=== PATIENT | female | born 1950 | race Caucasian/White ===

== ENCOUNTER → 2023-10-10 | Outpatient (CLI) | payer MEDICARE ==
--- NOTE | 2023-10-12 09:04 | MM ---
Reason for Exam: Screening (asymptomatic). Patient History: Menarche at age 11. First Full-Term at age 20. Postmenopausal. Patient has history of breast feeding. Maternal grandmother had breast cancer at or over age 50. Risk Values: Trini 5 year model risk: 1.4%. NCI Lifetime model risk: 3.8%. Prior Study Comparison: No prior studies available for comparison. Tissue Density: The breast tissue is heterogeneously dense. This may lower the sensitivity of mammography. Findings: Analyzed By CAD. There is no suspicious group of microcalcifications or new suspicious mass in either breast. Overall Assessment: Benign, BI-RAD 2 Management: Screening Mammogram of both breasts in 1 year. . Patient should continue monthly self-breast exams. A clinical breast exam by your physician is recommended on an annual basis. This exam should not preclude additional follow-up of suspicious palpable abnormalities. Note on Trini scores and lifetime risk: 1. A Trini score greater than 3% is considered moderate risk. If this is the case, consider specialist referral to assess eligibility for a risk reducing agent. 2. If overall lifetime risk for the development of breast cancer is 20% or higher, the patient may qualify for future screening with alternating mammogram and breast MRI. Electronically signed and approved by: Jacinto Bryant M.D. Radiologis
== END | disposition home or self-care (01) ==
LOC: RADMAMWWP 07:19
PROVIDERS: ATTEND Family Medicine
DX: Z12.31 Encounter for screening mammogram for malignant neoplasm of breast (principal); Z78.0 Asymptomatic menopausal state; Z80.3 Family history of malignant neoplasm of breast
CPT/HCPCS: 77063; 77067

== ENCOUNTER → 2024-08-01 | Outpatient (CLI) | payer MEDICARE ==
[2024-08-01 11:48] LABS: Partial Thromboplastin Time 23.7 sec (22.0-30.0); Prothrombin Time 10.7 sec (10.0-12.5)
[2024-08-01 15:15] LABS: HCT 42.1 % (37.2-46.3); HGB 13.4 g/dL (12.0-15.0); MCH 31.3 pg (27.0-32.0); MCHC 31.8 g/dL (32.0-37.0); MCV 98.4 FL (80.0-97.0); Mean Platelet Volume 10.6 FL (9.5-12.2); NRBC Per 100 WBC 0 X 10*3/uL (0.00-0.01); Platelet Count 357 X 10*3/uL (140-440); RBC 4.28 X 10*6/uL (4.10-5.20); RDW 13.5 % (11.5-14.5); WBC 7.14 X 10*3/uL (4.50-10.00)
[2024-08-01 15:20] LABS: ALT 16 U/L (8-44); AST 15 U/L (13-35); Albumin/Globulin Ratio 1.54 Ratio (1.60-3.17); Alkaline Phosphatase 76 U/L (41-126); BUN/Creat Ratio 16.17 Ratio (12.00-20.00); Blood Urea Nitrogen 9.7 mg/dL (9.0-27.0); Calcium 9.7 mg/dL (8.7-10.3); Carbon Dioxide 23.5 mmol/L (21.6-31.8); Chloride 105 mmol/L (96-109); Globulin 2.6 g/dL (1.6-3.3); Glucose 106 mg/dL (70-110); Potassium 4.4 mmol/L (3.5-5.5); Sodium 141 mmol/L (135-145); Total Bilirubin 0.5 mg/dL (0.3-1.2); Total Protein 6.6 g/dL (6.2-8.2)
== END | disposition home or self-care (01) ==
LOC: LABWHC1 10:32
PROVIDERS: ATTEND Orthopaedic Surgery
DX: Z01.818 Encounter for other preprocedural examination
CPT/HCPCS: 36415; 80053; 85027; 85610; 85730; 87070; 93005

== ENCOUNTER 2024-08-19 11:19 | Day surgery (SDC) | payer MEDICARE ==
[~2024-08-19 11:19] MED LIST: LIDOCAINE 1% (10MG/ML) FOR IV START INTRADERMA PRN; TRANEXAMIC 1,000 MG/100ML-NACL 1,000 MG in SALINE 1 100ML.BAG IVPB PRN; fentaNYL (PF) 50 MCG/ML 2 ML AMP IVP PRN
[2024-08-19] MEDS: LACTATED RINGERS 1,000 ML IV SCH (12:13)
[2024-08-19] MEDS: ACETAMINOPHEN TAB 500 MG TAB PO PRN (12:14)
[2024-08-19] MEDS: GABAPENTIN 300 MG CAP PO PRN (12:14)
[2024-08-19] MEDS: MELOXICAM 7.5 MG TAB PO PRN (12:14)
[2024-08-19] MEDS: ONDANSETRON 4 MG/2 ML VIAL IVP ONE (12:16)
[2024-08-19] MEDS: DEXAMETHASONE SOD PHOSPHATE 4 MG/ML 1 ML VIAL IV ONE (12:16)
[2024-08-19] MEDS: LACTATED RINGERS 1,000 ML IV ONE ×2 (12:40→14:30)
[2024-08-19] MEDS: MIDAZOLAM 2 MG/2 ML VIAL IV PRN (13:03)
[2024-08-19] MEDS ORDERED: HYDROmorphone 0.5 MG/0.5 ML SYRINGE IVP PRN ×3 (13:10)
[2024-08-19] MEDS ORDERED: NA PHOS,M-B/NA PHOS,DI-BA 133 ML ENEMA RECTAL PRN (13:10)
[2024-08-19] MEDS ORDERED: ONDANSETRON 4 MG/2 ML VIAL IVP PRN (13:10)
[2024-08-19] MEDS ORDERED: NALOXONE 0.4 MG/ML 1 ML VIAL IV PRN (13:10)
[2024-08-19] MEDS ORDERED: bisacodyL 10 MG SUPP RECTAL PRN (13:10)
[2024-08-19] MEDS ORDERED: MAGNESIUM HYDROXIDE 2,400 MG/30 ML CUP PO PRN (13:10)
[2024-08-19] MEDS ORDERED: HYDROcodone/APAP 7.5-325MG 1 EACH TAB PO PRN (13:12)
--- NOTE | 2024-08-19 13:25 | P.ANPRN ---
Procedure Note - Anesthesia - Nerve Block Performed Right Adductor Canal Infusion Time Out Performed: Yes Date of Procedure: 08/19/24 Procedure Start Time: 13:03 Procedure Stop Time: 13:11 Location of Patient: PreOp Indication: Acute Post-Operative Pain, Requested by Surgeon Sedation Type: Sedate with meaningful contact maintained Preparation: Sterile Prep, Sterile Dressing Position: Supine Catheter: Indwelling Needle Types: Pajunk Needle Gauge: 21 Ultrasound used to visualize needle placement: Yes Ultrasound used to observe medication spread: Yes Blood Aspirated: No Pain Paresthesia on Injection Noted: No Resistance on Injection: Normal Image Stored and Saved: Yes Events: Uneventful and Well Tolerated (ropi .5% 20cc plus dexamethasone 4mg)
--- NOTE | 2024-08-19 13:26 | P.ANPRN ---
Procedure Note - Anesthesia - Nerve Block Performed Right [place] Single Time Out Performed: Yes Date of Procedure: 08/19/24 Procedure Start Time: 13:12 Procedure Stop Time: 13:15 Location of Patient: PreOp Indication: Acute Post-Operative Pain, Requested by Surgeon Sedation Type: Sedate with meaningful contact maintained Preparation: Sterile Prep Position: Supine Needle Types: Pajunk Needle Gauge: 21 Ultrasound used to visualize needle placement: Yes Ultrasound used to observe medication spread: Yes Blood Aspirated: No Pain Paresthesia on Injection Noted: No Resistance on Injection: Normal Image Stored and Saved: Yes Events: Uneventful and Well Tolerated (ropi .5% 20cc plus dexmethasone 4mg)
[2024-08-19] MEDS ORDERED: GLYCOPYRROLATE 0.2 MG/ML 2 ML VIAL ONE (13:41)
[2024-08-19] MEDS ORDERED: ROPIVACAINE 5 MG/ML 30 ML VIAL ONE (13:41)
[2024-08-19] MEDS ORDERED: KETAMINE HCL IN 0.9 % NACL 50 MG/5 ML SYRINGE ONE (13:41)
[2024-08-19] MEDS ORDERED: PROPOFOL 10 MG/ML 20 ML VIAL IV ONE (13:41)
[2024-08-19] MEDS ORDERED: DEXAMETHASONE SOD PHOSPHATE 4 MG/ML 1 ML VIAL ONE (13:41)
[2024-08-19] MEDS ORDERED: MIDAZOLAM 2 MG/2 ML VIAL ONE (13:41)
[2024-08-19] MEDS ORDERED: TRANEXAMIC 1,000 MG/100ML-NACL PREMIX BAG ONE (13:41)
[2024-08-19] MEDS: ceFAZolin 3 GM in SODIUM CHLORIDE 0.9% 100 ML IVPB PRN (13:46)
[2024-08-19] MEDS: ceFAZolin 1,000 MG in SODIUM CHLORIDE 0.9% 1,000 ML IRRIGATION ONE (13:46)
--- NOTE | 2024-08-19 15:15 | P.OP ---
Date of Procedure: 08/19/24 Preoperative Diagnosis: Severe osteoarthritis, right knee Postoperative Diagnosis: Severe osteoarthritis, right knee Procedure(s) Performed: Right total knee arthroplasty Implants: [employer] Nephew Journey II CR Oxinium cruciate retaining femoral component size 5, right [employer] Journey nonporous tibial baseplate size 3, right [employer] Journey II, XLPE Deep Dished articular insert, size 13 mm, Size 3-4, right [employer] Journey [place] II resurfacing patellar component, oval, 32 mm All components were cemented using Palacos R bone cement The articulation is Oxinium on polyethylene Anesthesia: spinal Surgeon: Klaus Barrientos Lithograph Press Feeder #1: Elaina Talbert Estimated Blood Loss (ml): 40 Pathology: none sent Condition: stable Disposition: PACU Indications for Procedure: The patient's knee is end-stage, and conservative management has failed. The operation of knee replacement has been discussed at length in the office, as well as potential risks and complications. These are inclusive of, but not limited to: Infection, bleeding, scarring, discomfort, stiffness, blood vessel and nerve damage, need for further surgery, failure to relieve symptoms, persistence, recurrence, or worsening of problems, loosening, dislocation, wear, blood clot, pulmonary embolism, , gait dysfunction, stiffness, and other risks as discussed in the office. Patient elects to proceed and the consent form has been signed. Operative Findings: The operative findings are consistent with severe osteoarthritis of the right knee Description of Procedure: The patient was seen in the preoperative area, the consent was reviewed and the operative site was marked with a skin marker. The patient verified the procedure and the operative site. An adductor canal pain catheter and an iPACK block were placed by anesthesia in the preoperative area. The patient was then brought to the operating room and positioned on the operating room table in the supine position. Preoperative antibiotics and a gram of tranexamic acid were given intravenously. A spinal anesthetic was administered by the anesthesia department. Care was taken to make sure that all pressure points were adequately padded. A tourniquet was placed on the upper thigh and the lower extremity was prepped with ChloraPrep and draped in usual sterile fashion. A universal time-out was then performed which confirmed the patient's name, surgical site, ALLERGIES, and consent. The lower extremity was then exsanguinated and tourniquet was inflated to 250 mmHg. A standard anterior midline approach to the knee was performed. The skin and subcutaneous tissue were sharply dissected down to the patellar tendon. A medial parapatellar arthrotomy was then performed. The knee was then extended, the patellar was everted, and the knee was flexed. The infra-patellar fat pad was removed in order to enhance exposure. The anterior horns of both menisci were excised, and a release was performed to the posterior medial aspect of the knee. On gross visual inspection, there was complete loss of articular cartilage in the medial and patellofemoral joint spaces. There was also significant cartilage damage in the lateral compartment. There were multiple periarticular osteophytes globally about the knee which were then removed with a Ronguer. The femoral canal was then opened with the 9.5 mm intramedullary drill. The 8 mm intramedullary victor m was then inserted into the femoral canal with the distal femoral cutting guide set for 5 of valgus. The distal femoral cutting block was then pinned in place. The intramedullary victor m was then removed, and the distal femur was then cut. The cutting block was then removed and the cut was checked for symmetry. The resected bone was then measured to confirm the appropriate distal femoral resection. Next, the sizing guide was then placed and set for 3 external rotation based off of the epicondylar axis and [place]'s line. Pins were then placed and the drill holes, and the femur was sized with the sizing stylus. The pins were then removed, and the sizing guide was then removed. The spikes of the appropriate size femoral block was then placed into the predrilled holes, and malleted into place. Two 45 mm pins were then placed into the fixation holes on the cutting block. An matty wing was then used to ensure there would be no notching with the anterior cut. The anterior condyles were cut without notching. The anterior chord cut was then performed, followed by the posterior cut, posterior chamfer cut, and the anterio r chamfer cut. The collateral ligaments were protected during the entire process. The cutting block was then removed. Any remaining bone and osteophytes were removed from the femur with a Ronguer. Attention was then directed to the tibia. The remaining ACL was removed with a Ronguer, and the tibia was then gently subluxed forward with a large bent knee retractor. Any remaining menisci were excised. The posterior lateral corner was cauterized in order to coagulate the lateral geniculate artery. The extra medullary tibial cutting guide was then placed, set for the appropriate rotation, slope, and depth of resection. The proximal tibia cutting guide was then pinned in place. Proximal tibia was then cut and sized. A curved osteotome was then used to remove any posterior osteophytes from the distal femur. The femoral trial was placed. A narrow saw blade was then used to remove the anterior intracondylar femoral bone. The CR notch trial was then placed. The tibial trial was placed with the appropriate-sized insert. The knee was able to fully extend and flex to 130 and was stable throughout all range of motion. The knee was then extended and the patella was everted. Patella was then measured, and then using an osteotomy guide, the patella was cut at the appropriate level. The patellar component was sized. The patellar drill guide was placed and the patella was drilled. The patella trial was then placed. The knee was then taken through range of motion with the patella trial and the patella tracked normally using the no thumbs technique. The patella trial was then removed. The knee was then flexed and lug holes were drilled through the femoral trial and the femoral trial was then removed. The tibial was then re- exposed, and the tibial broach guide was then pinned in place after it was set for the appropriate rotation to allow for the most coverage without overhang. The tibia was then reamed and broached. The femoral canal was plugged with autologous bone. The cut surfaces of bone were then irrigated with pulsatile lavage. The knee was also irrigated with Irrisept solution. The components were then opened, the cement was mixed. Cement was placed on the backside of the femoral, tibial, and patellar components. Cement was then applied to the tibial surface and pressurized into the surface using finger pressurization technique. The tibial component was then applied and excess cement was removed after it was impacted securely noted to be flush with the cut surface. In similar fashion, the cement was applied to the cut femoral surface, pressurized and using finger pressurization the component was impacted in place. Excess cement was removed. The polyethylene spacer was then implanted and locked into position. Patellar component was then applied in a similar technique and the patellar clamp was used to hold patella in place while the cement hardened. The knee was held in full extension while the cement hardened. Once the cement had fully hardened, the knee was reinspected. Any other cement extrusion was removed the final range of motion testing showed range of motion from 0-130 with excellent stability, both medial and laterally and appropriate alignment of the leg. Patella tracked normally. After the cemented hardened, the tourniquet was released and hemostasis was obtained. A second gram of transexamic acid was given intravenously. The knee was again irrigated. The knee was again taken through range of motion and found to be stable throughout all range of motion of 0-130, and the patella tracked normally. The fascia was then closed with 0 Vicryl followed by #2 strata fix suture. The subcutaneous tissue was closed with 3-0 Vicryl and 3-0 strata fix. Exofin glue was used for the skin and placed with the knee in flexion. After the glue had dried, and Optafoam silver impregnated dressing was applied. A lightly compressive dressing was applied using web roll and Rubens wrap. Patient was then transferred to the stretcher and taken to recovery room in stable condition. Sponge and needle counts were correct. The bacteriology research assistant SHELBI Rivera was required due the complexity surgery and the need for a skilled surgical scrub technologist. She assisted in positioning, draping, retraction, and closure of the wound.
[2024-08-19] MEDS: ROPIVACAINE 1,100 MG, SODIUM CHLORIDE 0.9% 500 ML 330 ML, EMPTY PAIN BALL 1 EACH MISCELLANE PRN (16:06)
--- NOTE | 2024-08-19 16:42 | XR ---
EXAMINATION TYPE: XR knee limited RT DATE OF EXAM: 08/19/2024 COMPARISON: None HISTORY: Knee replacement TECHNIQUE: 2 view right tibia and fibula FINDINGS: No acute fracture or dislocation. Soft tissue changes from surgery are evident. Tibial and femoral components have been placed. No acute fractures are evident. IMPRESSION: 1. No acute fractures post knee replacement [facility] [place], Workstation: [facility], 08/19/2024 4:40 PM
[2024-08-19] MEDS: HYDROmorphone 0.5 MG/0.5 ML SYRINGE IVP PRN (17:52)
[2024-08-19] MEDS: SODIUM CHLORIDE 0.9% 1,000 ML IV SCH (18:57)
[2024-08-19] MEDS: SENNOSIDES-DOCUSATE SODIUM 1 EACH TAB PO SCH (21:07)
[2024-08-19] MEDS: ASPIRIN 325 MG TAB PO SCH (21:07)
[2024-08-19] MEDS: ceFAZolin 3 GM in SODIUM CHLORIDE 0.9% 100 ML IVPB SCH (21:07)
--- NOTE | 2024-08-19 21:48 | P.CONS ---
History of Present Illness - Reason for Consult Consult date: 08/19/24 Medical management Requesting physician: Elaina Talbert - History of Present Illness Patient is a 73-year-old female with past medical history of osteoarthritis who had a scheduled right total knee arthroplasty done earlier today. She seems to be doing well after the surgery. She mentions that she has not had a bowel movement or passed flatus or urinated after the surgery. The patient mentions she tends to get edema of the lower extremities but isn't on any medications. Denies fever, chills, nausea, vomiting, abdominal pain, chest pain, shortness of breath, dizziness. Vitals: T97.1 F, P 69 bpm, RR 16, BP 146/73 Review of systems: Pertinent positives and negatives as discussed in HPI, a complete review of systems was performed and all other systems are negative. PMH: Hyperlipidemia, hypertension, anxiety PSH: Tubular ligation FMH: Diabetes, CAD, stroke Allergies: Environmental allergies Social history: Tobacco: Former smoker Alcohol: Occasional Physical examination: Vital signs reviewed General: non toxic, no distress, appears at stated age, obese Derm: no unusual rashes/lesions, warm Head: atraumatic, normocephalic, symmetric Eyes: EOMI, anicteric sclera ENT: Nose and ears atraumatic Mouth: no lip lesion, mucus membranes moist Cardiovascular: S1S2 reg, no murmur Lungs: CTA bilateral, no rhonchi, no rales, no accessory muscle use Abdominal: soft, nontender to palpation, no guarding Ext: BRAEDEN hose bilaterally Neuro: CN II-XI grossly intact, no gross focal neuro deficits Psych: Alert, oriented, appropriate affect Assessment/Plan: Patient is a 73-year-old female who had an elective right total knee arthroplasty done earlier today. We have been consulted for medical management #. Hyperlipidemia Continue atorvastatin 20 mg p.o. daily #. History of anxiety/depression Continue fluoxetine 10 mg p.o. daily #. Hypertension Continue lisinopril 40 mg p.o. daily #. S/p right total knee arthroplasty Patient does not have any complaints Knee x-ray post knee replacement does not show any acute fractures Pain management defer to surgery F: 0.9 normal saline at 70 mL/h E: Replete as required N: Regular diet A: DVT prophylaxis: Defer to surgery Past Medical History Past Medical History: Hyperlipidemia, Hypertension, Osteoarthritis (OA) Additional Past Medical History / Comment(s): seasonal allergies, borderline diabetes per pt states she does not check her blood sugars trys to watch her diet. bilateral knee pain. edema to bilateral legs History of Any Multi-Drug Resistant Organisms: None Reported Past Surgical History: Tonsillectomy, Tubal Ligation Additional Past Surgical History / Comment(s): trigger thumb surgery, colonoscopy Past Anesthesia/Blood Transfusion Reactions: No Reported Reaction Smoking Status: Former smoker - Past Family History Mother Family Medical History: Hypertension Additional Family Medical History / Comment(s): maternal grandparents diabetes. mom overweight, not moving multiple issues related to it. Medications and Allergies Home Medications Medication Instructions Recorded Confirmed Type Aspirin 81 mg PO DAILY 08/12/24 08/12/24 History Atorvastatin Calcium 20 mg PO DAILY 08/12/24 08/19/24 History FLUoxetine HCL [PROzac] 10 mg PO DAILY 08/12/24 08/19/24 History [employer] Allergy Otc Tab 1 tab PO DAILY 08/12/24 08/12/24 History Unk Fish Oil 1 tab PO DAILY 08/12/24 08/12/24 History Unk Ibuprofen 1 tab PO DIRECTED PRN 08/12/24 08/12/24 History Unk Vitamin E 1 tab PO DAILY 08/12/24 08/12/24 History lisinopriL 40 mg PO DAILY 08/12/24 08/19/24 History Aspirin 325 mg PO BID #60 tab 08/19/24 Rx HYDROcodone/APAP 7.5-325MG [[place] 1 - 2 tab PO Q6H PRN #32 tab 08/19/24 Rx 7.5-325] Sennosides [Senokot] 2 tab PO DAILY PRN #60 tablet 08/19/24 Rx Allergies Allergy/AdvReac Type Severity Reaction Status Date / Time No Known Allergies Allergy Verified 08/12/24 13:21 Physical Exam Vitals: Vital Signs Temp Pulse Resp BP Pulse Ox 08/19/24 18:15 69 16 146/73 99 08/19/24 18:01 93 16 140/62 99 08/19/24 17:47 89 16 126/61 99 08/19/24 17:31 67 16 146/72 99 08/19/24 17:00 68 16 132/75 99 08/19/24 16:45 58 L 16 140/72 99 08/19/24 16:30 56 L 16 130/71 99 08/19/24 16:15 49 L 16 121/63 96 08/19/24 16:02 55 L 16 125/73 96 08/19/24 15:44 97.1 F L 78 16 94/50 96 08/19/24 13:17 65 16 114/59 94 L 08/19/24 11:51 97.8 F 89 18 144/67 98 Intake and Output 08/19/24 08/19/24 08/19/24 06:59 14:59 22:59 Intake Total 1901 50 Output Total 40 Balance 1901 10 Intake: IV 1901 50 Output: Estimated Blood Loss 40 Other: Weight 122 kg Assessment and Plan Assessment: I have seen and evaluated the patient today. I Discussed the case with the resident and agree with the resident's findings I edited the assessment and plan as necessary as documented in the resident's note.
[2024-08-19] MEDS: HYDROcodone/APAP 7.5-325MG 1 EACH TAB PO PRN (22:35)
--- NOTE | 2024-08-20 06:56 | P.PN ---
Progress Note - Text Progress Note Date: 08/20/24 patient was seen and evaluated at bedside. Status post postoperative day 1 for Right total knee arthroplasty patient had adductor canal catheter for postop pain control. Patient rated pain at rest 4-5 out of 10 in severity. Patient describes pain is aching, throbbing type on the sides of the knee and back of the knee. Patient started walking with support. With activity patient pain levels are 6-7 out of 10 in severity. With the help of oral pain medications pain levels are tolerable. Patient denied any weakness/ numbness in lower extremities. patient denied any fever, pain over the catheter site. Physical exam: Patient vital signs stable Patient is alert awake oriented 3 responding to all questions appropriately Examination of the catheter site showed dressing intact, no leaking fluid around the catheter, no redness, no tenderness over the catheter insertion area. plan: status post postoperative day 1 for right total knee arthroplasty with adductor canal catheter for pain control. Patient was discussed to continue the medication at the rate of 8 mL per hour until the pump is completely empty and instructed the patient how to discontinue the catheter
[2024-08-20 08:12] VITALS: BP 144/73; PULSE 69; RESP 16; TEMP 97.6
[2024-08-20 08:50] LABS: Basophils # (A) 0.01 X 10*3/uL (0.00-0.10); Basophils % (A) 0.1 %; Eosinophils # (A) 0 X 10*3/uL (0.04-0.35); Eosinophils % (A) 0 %; HCT 39.4 % (37.2-46.3); HGB 12.3 g/dL (12.0-15.0); Lymphocytes # (A) 1.24 X 10*3/uL (0.90-5.00); Lymphocytes % (A) 9.4 %; MCH 30.2 pg (27.0-32.0); MCHC 31.2 g/dL (32.0-37.0); MCV 96.8 FL (80.0-97.0); Mean Platelet Volume 10.1 FL (9.5-12.2); Monocytes # (A) 0.82 X 10*3/uL (0.20-1.00); Monocytes % (A) 6.2 %; NRBC Per 100 WBC 0 X 10*3/uL (0.00-0.01); Neutrophils # (A) 11.13 X 10*3/uL (1.80-7.70); Neutrophils % (A) 83.8 %; Platelet Count 382 X 10*3/uL (140-440); RBC 4.07 X 10*6/uL (4.10-5.20); RDW 12.8 % (11.5-14.5); WBC 13.26 X 10*3/uL (4.50-10.00)
[2024-08-20] MEDS: lisinopriL 20 MG TAB PO SCH (09:16)
[2024-08-20] MEDS: FLUoxetine HCL 10 MG CAP PO SCH (09:16)
[2024-08-20] MEDS: ATORVASTATIN 20 MG TAB PO SCH (09:16)
--- NOTE | 2024-08-20 09:51 | P.PN ---
Subjective Progress Note Date: 08/20/24 Hospital course: Patient is a very pleasant 73-year-old female with a past medical history of hypertension, hyperlipidemia, and osteoarthritis. She is currently admitted under orthopedic surgery team and underwent elective right total knee arthroplasty secondary to severe osteoarthritis of her right knee. Surgical procedure was completed by Dr. Barrientos. We were consulted for medical management throughout hospitalization. Physical exam: Patient seen and fully evaluated at bedside this morning. She postoperative day 1 was sitting up in chair and reports doing well. She reports only experiencing mild postoperative pain at this time. Patient reports her plan is for discharge home with PT/OT and states that her daughter lives above her and has history of working as a medical care administrator and plans to help her through her recovery. Patient denies having any other needs or complaints at this time. Vital signs reviewed and stable. General: Nontoxic, no distress and appears stated age. Derm: Skin warm and dry, normal coloration for ethnicity. Head: Atraumatic, normocephalic and symmetric. Eyes: EOM's intact, no lid lag, and anicteric sclera Mouth: no lip lesions, mucus membranes moist Cardiovascular: regular rate and rhythm with normal S1S2, no murmur, positive posterior tibial pulses bilaterally, and cap refill < 2 seconds. Lungs: Respirations even, regular, and unlabored on room air. Lungs CTA bilaterally, no rhonchi, no rales, no wheezing, and no accessory muscle usage. Abdominal: soft, nontender to palpation, no guarding, no appreciable organomegaly Ext: Movement and sensation intact.. No gross muscle atrophy, no edema, no contractures. Dressing in place right knee with Rubens wrap. Neuro: Speech clear, face symmetrical and CN II-XII grossly intact with no noted focal neuro deficits Psych: Alert and oriented to person, place, time, and situation. Appropriate and pleasant affect. Assessment and Plan of Care: Status post right total knee arthroplasty Severe osteoarthritis of right knee -Management per primary admitting orthopedic surgery team including DVT prophylaxis, pain management, wound/dressing management, weightbearing, and PT/ OT. -Currently DVT prophylaxis with aspirin 325 mg twice daily. Hypertension -Patient to continue daily medication regimen with lisinopril 40 mg daily. Hyperlipidemia -Continue Lipitor 20 mg daily. Anxiety and depression -Continue fluoxetine 10 mg daily. Data reviewed: - Postoperative labs reviewed revealing leukocytosis with WBC count of 13.26 otherwise no significant abnormalities. - Vital signs reviewed. Blood pressure 144/73, heart rate 69, respiratory rate 16, temp 97.6 F, and SpO2 of 96% on room air. Patient is medically optimized and cleared from medical perspective for discharge once cleared by primary admitting orthopedic surgery team. Discharge reconciliation has been completed. Thank you for allowing us to participate in the care of this pleasant patient. Do not hesitate to contact us with questions. Someone can be reached from the [facility] hospitalist group all hours of the day at [phone] or via [employer]. Patient was seen independently by Nurse Pracitioner. This document was prepared using [employer]AR[employer] dictation software. Please allow for errors in nuclear physics professor, while rare they do occur. Yonis Valdovinos NP rendered care for this patient independently, reviewed the findings and plan as documented in the note above. I did not physically speak with or examine the patient on this date. Objective - Vital Signs Vital signs: Vital Signs Temp 97.6 F 08/20/24 07:37 Pulse 69 08/20/24 07:37 Resp 16 08/20/24 07:37 BP 144/73 08/20/24 07:37 Pulse Ox 96 08/20/24 07:37 FiO2 Intake & Output 08/19/24 08/20/24 08/20/24 18:59 06:59 18:59 Intake Total 1950 Output Total 40 Balance 1910 Weight 122 kg 122 kg Intake: IV 1950 Output: Estimated Blood Loss 40 Other: # Voids 3 - Labs CBC & Chem 7: 08/20/24 03:27
--- NOTE | 2024-08-20 10:52 | P.DS ---
Providers Expected date of discharge: 08/20/24 Attending physician: Klaus Barrientos Consults: 08/19/24 13:10 Consult Physician Routine Consulting Provider: Keenan Gatica Consult Reason/Comments: medical management Do you want consulting provider notified?: Yes Primary care physician: Shmuel Apodaca - Discharge Diagnosis(es) (1) Osteoarthritis of right knee Current Visit: Yes Status: Acute (2) S/P total knee arthroplasty Current Visit: Yes Status: Acute Hospital Course: This is a 73-year-old female with known history of degenerative arthritis of the right knee. The patient presented for evaluation as an outpatient. After discussion and consideration patient elects to proceed with total knee arthroplasty. The patient is seen preoperatively by Dr. Barrientos and medically cleared for surgery by their primary care physician. Patient is admitted to [facility] on 08/19/2024 for total knee arthroplasty. The procedure is performed without complication or sequelae. The patient is doing well postoperatively. Labs and vital signs are stable on day of discharge. On day of discharge patient's knee incision is healing well. There is minimal erythema. There is no drainage noted at this time. There is minimal soft tissue swelling to the knee. Patient has full foot and ankle motion without difficulty or pain. Calf is soft and nontender to palpation. Neurovascular status to the right lower extremity is intact. Patient is discharged home in good condition. Please see med rec for accurate list of home medications. Plan - Discharge Summary Discharge Rx Participant: No New Discharge Prescriptions: New HYDROcodone/APAP 7.5-325MG [Merkel 7.5-325] 1 - 2 tab PO Q6H PRN #32 tab PRN Reason: Pain Aspirin 325 mg PO BID #60 tab Sennosides [Senokot] 2 tab PO DAILY PRN #60 tablet PRN Reason: Constipation Continue lisinopriL 40 mg PO DAILY FLUoxetine HCL [PROzac] 10 mg PO DAILY Unk Vitamin E 1 tab PO DAILY Unk Fish Oil 1 tab PO DAILY Atorvastatin Calcium 20 mg PO DAILY Unk Ibuprofen 1 tab PO DIRECTED PRN PRN Reason: Pain [employer] All[employer] Otc Tab 1 tab PO DAILY No Action Aspirin 81 mg PO DAILY Discharge Medication List Aspirin 81 mg PO DAILY 08/12/24 [History] Atorvastatin Calcium 20 mg PO DAILY 08/12/24 [History] FLUoxetine HCL [PROzac] 10 mg PO DAILY 08/12/24 [History] [employer] Allergy Otc Tab 1 tab PO DAILY 08/12/24 [History] Unk Fish Oil 1 tab PO DAILY 08/12/24 [History] Unk Ibuprofen 1 tab PO DIRECTED PRN 08/12/24 [History] Unk Vitamin E 1 tab PO DAILY 08/12/24 [History] lisinopriL 40 mg PO DAILY 08/12/24 [History] Aspirin 325 mg PO BID #60 tab 08/19/24 [Rx] HYDROcodone/APAP 7.5-325MG [Merkel 7.5-325] 1 - 2 tab PO Q6H PRN #32 tab 08/19/24 [Rx] Sennosides [Senokot] 2 tab PO DAILY PRN #60 tablet 08/19/24 [Rx] Follow up Appointment(s)/Referral(s): [facility],Equipment [NON-STAFF] - As Needed (Continuous Passive Motion knee machine and walker) Ebony Pino, RORY [Family Provider] - 1 Week Klaus Barrientos DO [Doctor of Osteopathic Medicine] - 09/01/24 1:20 pm Activity/Diet/Wound Care/Special Instructions: Weightbearing as tolerated with a walker. CPM 5-6h daily as tolerated. Leave dressing intact. Dressing may be removed by home care nurse or by patient in 7 days. Then change dressing twice daily until follow up. May shower with initial dressing intact and after removal. If dressing become saturated, please remove. Recommend use of compression stockings daily until follow up to help prevent swelling and blood clots. May remove at night before sleeping. Please take aspirin 325mg twice daily for 30 days to prevent blood clots. Please follow up with [facility] and call with any questions or concerns, . Discharge Disposition: HOME WITH HOME HEALTH SERVICES
== END 2024-08-20 13:41 | disposition home health service (06) ==
LOC: OR 11:19 → 4SSUR 15:44 → OR 08-20 13:41
PROVIDERS: ATTEND Orthopaedic Surgery
CPT/HCPCS: 64448; 64999; 85025